=== PATIENT | female | born 1995 | race Caucasian/White ===

== ENCOUNTER 2019-05-27 10:43 | Day surgery (SDC) | payer OTHER, SELFPAY ==
[2019-05-26 16:11] LABS: BASOPHILS % (AUTO) 0.3 % (0.0-5.0); EOSINOPHILS % (AUTO) 0.3 % (0.0-8.0); HEMATOCRIT 36.8 % (36-48); LYMPHOCYTES % (AUTO) 21.7 % (21.0-51.0); MEAN CORPUSCULAR HEMOGLOBIN 31.1 pg (27.0-33.0); MEAN CORPUSCULAR VOLUME 91.5 fL (79-99); MONOCYTES % (AUTO) 6.5 % (3.0-13.0); NEUTROPHILS % (AUTO) 70.7 % (40.0-77.0); PLATELET COUNT (AUTO) 317 K/uL (130-400); RED BLOOD CELL COUNT(AUTO) 4.02 MIL/uL (4.00-5.50); RED CELL DISTRIBUTION WIDTH 12.8 % (11.0-15.5); WHITE BLOOD COUNT (AUTO) 9.7 K/uL (4.8-10.8)
[2019-05-26 16:58] VITALS: BP 107/56
[2019-05-27] VITALS (15 sets, daily range): BP systolic 92–129; BP diastolic 59–84
[~2019-05-27] VITALS: Ht 160 cm; Wt 48.5 kg
[~2019-05-27 10:43] MED LIST: CEFAZOLIN SODIUM 1 GM VIAL IVP SCH
[2019-05-27] MEDS ORDERED: CEFAZOLIN SODIUM 1 GM VIAL ONE (11:25)
[2019-05-27] MEDS ORDERED: LACTATED RINGERS 1000ML 1,000 ML IV ONE (11:25)
[2019-05-27] MEDS ORDERED: PROPOFOL 10 MG/ML 20ML VIAL IV ONE (12:06)
[2019-05-27] MEDS ORDERED: MIDAZOLAM HCL 1 MG/ML 2ML VIAL ONE ×2 (12:06→13:12)
[2019-05-27] MEDS ORDERED: FENTANYL CITRATE PF 50 MCG/1 ML 2ML VIAL ONE ×3 (12:06→13:41)
[2019-05-27] MEDS ORDERED: LIDOCAINE PF 2% 5ML ABBOJECT ONE (12:06)
[2019-05-27] MEDS ORDERED: DEXAMETHASONE SOD PHOSPHATE 4 MG/ML 1ML VIAL ONE (12:07)
[2019-05-27] MEDS ORDERED: ONDANSETRON HCL 4 MG/2 ML VIAL ONE (12:07)
[2019-05-27] MEDS ORDERED: OXYTOCIN 10 USP UNITS/ML ONE ×2 (12:16→12:45)
--- NOTE | 2019-05-27 16:15 | NUR ---
PT RECEIVED RHOGAM 1530PM PT. NATHAN WELL, N TRANSFUSION REACTION.
--- NOTE | 2019-05-27 16:43 | NUR ---
PT LEFT VIA WHEELCHAIR IN PVT CAR, WITH MOTHER. PT. V/S STABLE NO COMPLICATION ON D/C . D/C INSTRUCTIONS GIVEN TO MOM ALONG WITH RX SCRIPT.
== END 2019-05-27 16:40 | disposition home or self-care (01) ==
LOC: DAH 10:43
PROVIDERS: ATTEND Obstetrics & Gynecology
DX: O02.0 Blighted ovum and nonhydatidiform mole (principal); K21.9 Gastro-esophageal reflux disease without esophagitis; F17.210 Nicotine dependence, cigarettes, uncomplicated; Z88.5 Allergy status to narcotic agent; Z91.040 Latex allergy status; Z98.890 Other specified postprocedural states; Z88.8 Allergy status to other drugs, medicaments and biological substances
CPT/HCPCS: 36415 ×2; 59820; 83033; 85025; 86850; 86900; 86901; 88305; A4213; A4215; A4221; A4222; A4223; A4351; A4649; A4663; A6260; A7002; J0690; J1100; J2001; J2250 ×2; J2405; J2590 ×2; J2704; J2791; J3010 ×3; J7030; J7120